=== PATIENT | female | born 1940 | race Caucasian/White ===

== ENCOUNTER 2020-05-15 10:13 | Inpatient (IN) | payer OTHER, MEDICAID ==
[2020-05-09 10:40] LABS: ABSOLUTE BASOPHILS 0.1 thou/uL (0.0-0.2); ABSOLUTE EOSINOPHILS 0.2 thou/uL (0.0-0.7); ABSOLUTE LYMPHOCYTES 2.5 thou/uL (0.8-5.3); ABSOLUTE MONOCYTES 0.7 thou/uL (0.0-1.2); ABSOLUTE NEUTROPHILS 3.7 thou/uL (1.6-8.1); EOSINOPHILS 2.3 %; HEMATOCRIT 38.4 % (37.0-47.0); HEMOGLOBIN 12.9 gm/dL (12.0-15.0); LYMPHOCYTES 34.5 %; MCHC 33.5 g/dL (28.0-37.0); MCV 89.7 fL (80.0-100.0); MONOCYTES 9.9 %; MPV 7.9 fl. (7.2-11.1); NUCLEATED RBCS 0 /100WBC; PLATELET COUNT* 239 thou/uL (150-400); POLYS 52.3 %; RBC 4.28 mil/uL (4.20-5.00); RDW-CV 13.7 % (10.5-14.5); WBC 7.1 thou/uL (4.0-11.0)
[2020-05-09 10:51] LABS: APTT 26.6 Seconds (25.0-31.3); PROTIME 10.1 Seconds (9.20-11.50)
[2020-05-09 11:00] LABS: ALBUMIN 3.7 g/dL (3.4-5.0); CALCIUM 8.4 mg/dL (8.5-10.1); CREATININE 0.8 mg/dL (0.6-1.3); POTASSIUM 3.7 mmol/L (3.5-5.1); TOTAL BILIRUBIN 0.6 mg/dL (<0.1-1.0); TOTAL PROTEIN 7.3 g/dL (6.4-8.2)
[2020-05-09 11:10] LABS: URINE BILIRUBIN NEGATIVE (Negative); URINE BLOOD NEGATIVE (Negative); URINE CLARITY CLEAR; URINE COLOR YELLOW; URINE GLUCOSE-RANDOM NEGATIVE (Negative); URINE KETONES NEGATIVE (Negative); URINE LEUKOCYTES-REFLEX TRACE (Negative); URINE NITRITE-REFLEX NEGATIVE (Negative); URINE PROTEIN NEGATIVE (Negative); URINE UROBILINOGEN 0.2 E.U./dl (0.2-1.0)
[2020-05-09 11:15] LABS: BACTERIA-REFLEX 1-9 Few /HPF (None Seen); CASTS None Seen /LPF (None Seen); CRYSTALS None Seen /LPF (None Seen); SQUAMOUS 0-3 Few /LPF (0-3); URINE RBC 0-2 Rare /HPF (0-2); URINE WBC-REFLEX 0-5 Rare /HPF (0-5)
[2020-05-09 12:13] LABS: ESR (SEDRATE) 18 mm/hr (0-30)
--- NOTE | 2020-05-09 19:18 | EKG ---
[place] [address] ELECTROCARDIOGRAM REPORT Name: AIDAN NORMAN Room: [facility]#: [id number] Admission: Attend Phys: Sabas Noriega DO Discharge: Date of : 42 Date of Service: 05/09/20 1045 Report #: [id number] THIS REPORT FOR: //name// [facility] Test Date: 2020-05-09 Test Time: 10:45:23 Pat Name: AIDAN NORMAN Department: Room: Gender: Nurses Educator: : 1940 Requested By: Sabas Noriega Order Number: [id number] MD: Luis Hogue Measurements Intervals [place] Rate: 62 P: 57 FL: 199 QRS: -41 QRSD: 90 T: 64 QT: 453 QTc: 460 Interpretive Statements Sinus rhythm Left anterior fascicular block No previous ECG available for comparison Electronically Signed On 05-09-2020 17:43:49 CDT by Luis Hogue [email or web address] <ELECTRONICALLY SIGNED> By: Luis Hogue MD, [facility] 05/09/20 1743 1045 1045 Luis Hogue MD, FACC /EPI
[~2020-05-15] VITALS: Ht 165.1 cm; Wt 75.3 kg
--- NOTE | ~2020-05-15 | OP ---
[facility] [address] [place] [address] OPERATIVE REPORT Name: AIDAN NORMAN Loly Room: [address] [place].R.#: [id number] Admission: 05/15/20 Attend Phys: Wade Cornejo Discharge: Date of : 42 Report #: [id number] THIS REPORT FOR: //name// cc: Tegan Gonzáles MD, Ghazal A. MD ~ THIS REPORT FOR: //name// CC: Tegan Perez DICTATED BY: Festus Christiansen DO DATE OF SERVICE: 05/15/2020 PREOPERATIVE DIAGNOSIS: Failed right total knee. POSTOPERATIVE DIAGNOSIS: Failed right total knee. PROCEDURE PERFORMED: Revision right total knee arthroplasty using the [employer] Persona revision system with the following components: 1. A size 7 right revision femoral component. 2. A size 14 x 135 mm straight femoral stem. 3. A size 5 mm posterolateral femoral augment. 4. A size 5 mm right lateral distal femoral augment. 5. A size 10 mm medial distal femoral augment. 6. A size small femoral cone. 7. A size D tibial baseplate. 8. A size 13 x 135 mm tibial stem with a 3 mm offset. 9. A 5 mm medial and lateral tibial augments. 10. A size extra small tibial cone. 11. A 16 mm constrained posterior stabilized polyethylene. 12. Two bags of Biomet bone cement. SURGEON: Sabas Noriega DO FLOORING SALESPERSON: Festus Christiansen DO and Marilia Gutierrez PA-C. ANESTHESIA: Spinal with continuous adductor canal block. ESTIMATED BLOOD LOSS: 225. SPECIMENS: None. COMPLICATIONS: None. [place] [id number] OPERATIVE REPORT Name: AIDAN NORMAN Room: [address] [place].#: [id number] Admission: 05/15/20 Attend Phys: Wade Cornejo Discharge: Date of : 42 Report #: [id number] DISPOSITION: Stable to PACU. ANTIBIOTICS: IV Ancef given preoperatively. TOURNIQUET TIME: 27 minutes at 290 mmHg. INDICATIONS: The patient is a 79-year-old female with a history of a right total knee. She did well initially. However, the last couple of years, she began having increased pain and instability. She failed all conservative measures. She continued to have pain on a daily basis that was interfering with her ADLs. Therefore, I recommend she undergo revision total knee arthroplasty. DESCRIPTION OF PROCEDURE: The patient was seen in the preoperative area. Written consent was obtained. The operative site marked. She was brought back to the operative suite and placed supine on a well-padded operative table. She could benefit of spinal anesthesia. A well-padded pneumatic tourniquet was applied to right proximal thigh. Right lower extremity was prepped and draped in normal sterile fashion. Surgical timeout was performed. Correct side, site, procedure were verified. Everyone present was in agreement. Procedure began with a scar excision. Sharp dissection was taken down on either side of the incision and the subcutaneous fat was excised with the skin. We then sharply dissected down to the level of capsule. A new blade was used to create a standard medial parapatellar arthrotomy. 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 There was a small joint effusion. No obvious signs of infection. We created our medial capsular sleeve. We released the adhesions on the retropatellar tendon space. We were able to uday the patella. We then performed an extensive synovectomy using the Bovie cautery. Adequate hemostasis was achieved throughout. We were then able to flex the knee up to 120 degrees of flexion. The poly was removed. We used flexible osteotomes to loosen up the femoral component. The femoral component was then extracted with minimal bone loss. We turned our attention to the tibia. The flexible osteotome was used again to break up the cement mantle. We then used a flat osteotome to lift the keel out of the tibial metaphysis. Again, there was minimal bone loss. We then began reaming sequentially. The tibia reamed to 13 and the femur reamed to a 14. We focused our attention on the femur. We thinned the distal femoral cutting guide into place in 6 degrees of valgus. The cut was made for a cleanup fashion. There was a minimal cut through the distal jig. We therefore cut for a 5 mm augment laterally and a 10 mm augment medially and this provided appropriate cleanup cut. We then sized the femur to 7. The 4-in-1 cutting block was pinned into place, referencing the epicondylar access. The carmen wing was used to confirm the appropriate size. Anterior cut was made in standard fashion. Posterior medial, we performed a cleanup cut. On the lateral side, we were missing a little bit of bone, so we cut through the 5 mm slot. The chamfer cuts were made in standard fashion. We then turned our attention to the tibia. The reamer was reinserted. The cutting guide was [place] [id number] OPERATIVE REPORT Name: AIDAN NORMAN Room: [address] [place] [facility]#: [id number] Admission: 05/15/20 Attend Phys: Wade Cornejo Discharge: Date of : 42 Report #: [id number] measured off the highest point. We used the 0 mm cut, which air balled throughout most of the tibial plateau. We then cut through the 5 mm block on each side, which gave us a good cleanup cut. We sized the tibia to a D. During the sizing, we determined a 3 mm offset was appropriate. This was between the 6 and 7 o'clock positions. We then trialled our tibial component. We referenced the medial third of tibial tubercle. We checked our alignment with the drop tabatha, which was along the center of crest, center of the ankle and second ray. At this point, we prepped for our cone. We used the reamer followed by sequential broaches for an extra small. We then prepped the femur for the cone again in similar fashion with a drill followed by the appropriate sized punch. All final components were inserted. A 14 mm poly was trialed. This allowed for full flexion and extension. Slight laxity which was symmetric at both 30 degrees and 90 degrees of flexion. We tried 16, which allowed for good motion, symmetric gaps and good balancing. We assessed the patella. It appeared stable. No significant defects. All trial components were removed. The tibia was punched with the keel. The knee was thoroughly lavaged. Orthopedic cocktail was injected in the posterior capsule. We elevated the leg and inflated the tourniquet to 290 mmHg. This deflated after cementing for a total time of 27 minutes. Final components were assembled on the back table. The cement was mixed. We inserted the cones first both on the tibia and the femur. We then used the diamond sizer and grader to cement the final components. Excess cement was removed. A 16 mm trial was utilized. This allowed for full flexion and extension with good balancing and symmetric gaps. The final 60 mm poly was inserted. The wound was thoroughly irrigated. Vancomycin powder was introduced. The knee was brought to 90 degrees of flexion. Tourniquet was deflated for a total time of 27 minutes. The capsular tissue was closed with #1 Vicryl in asmidv-om-lorsy fashion. This was reinforced with a running #1 Stratafix. The wound was thoroughly irrigated. Subcutaneous tissue was closed with 2-0 Monocryl in a simple inverted interrupted fashion. This was reinforced with a running 3-0 Stratafix and Exofin skin glue. Sterile Mepilex was applied. The patient was awoken from anesthesia and transferred to PACU in stable condition. There were no complications. Needle and sponge counts were correct x 2. Dr. Noriega was present for all critical aspects of the case. By: [id number] Noriega DO /nt
[~2020-05-15 10:13] MED LIST: ALPRAZOLAM 0.0.25 MG PO; CETIRIZINE HCL5 MG PO; COZAAR 25 MG TA25 M2 PO; LEVOXYL88 MCG PO; LIPITOR10 MG PO; OMEPRAZOLE 20 M20 M1 PO; SINGULAIR 10 MG10 M1 PO; TRAZODONE HCL100 MG PO
[2020-05-15] MEDS ORDERED: TYLENOL EXTRA500 MG PO (10:29)
[2020-05-15 11:45] VITALS: BP 109/55
[2020-05-16] VITALS (7 sets, daily range): BP systolic 78–128; BP diastolic 25–63
[2020-05-16 04:22] LABS: HEMATOCRIT 27.6 % (37.0-47.0); HEMOGLOBIN 9.4 gm/dL (12.0-15.0)
[2020-05-17 04:00] VITALS: BP 110/53
[2020-05-17 04:39] LABS: ABSOLUTE LYMPHOCYTES 1.8 thou/uL (0.8-5.3); ABSOLUTE MONOCYTES 1.1 thou/uL (0.0-1.2); ABSOLUTE NEUTROPHILS 4.7 thou/uL (1.6-8.1); BASOPHILS 0.3 %; EOSINOPHILS 0.5 %; HEMATOCRIT 23.8 % (37.0-47.0); MCH 30.3 pg (26.0-34.0); MCHC 33.8 g/dL (28.0-37.0); MCV 89.6 fL (80.0-100.0); MONOCYTES 14.1 %; MPV 8.3 fl. (7.2-11.1); NUCLEATED RBCS 0 /100WBC; PLATELET COUNT* 139 thou/uL (150-400); POLYS 61.1 %; RBC 2.65 mil/uL (4.20-5.00); RDW-CV 13.2 % (10.5-14.5); WBC 7.7 thou/uL (4.0-11.0)
[2020-05-17 05:11] LABS: % SATURATION 5 % (20-39); IRON 11 ug/dL (50-175)
[2020-05-17 08:00] VITALS: BP 101/34
[2020-05-17 12:00] VITALS: BP 123/49
[2020-05-17 16:00] VITALS: BP 135/55
[2020-05-18] VITALS: BP 152/47
[2020-05-18 07:50] VITALS: BP 135/37
[2020-05-18] MEDS ORDERED: ELIQUIS5 MG PO (10:58)
[2020-05-18] MEDS ORDERED: HYDROCODON-ACE1 EAC7 PO (10:58)
[2020-05-18] MEDS ORDERED: FERROUSUL325 M1 PO (10:58)
[2020-05-18] MEDS ORDERED: SENOKOT-S TABL1 EACH PO (10:58)
[2020-05-18] MEDS ORDERED: TRAMADOL HCL50 MG PO (12:21)
== END 2020-05-18 14:27 | disposition home health service (06) | DRG 468 ==
LOC: M.PRE → M.ORTHSURG 10:13 → M.TBA 10:13 → M.PRE 11:08 → M.TBA 15:10 → M.ORTHSURG 15:10
PROVIDERS: Family Medicine; Orthopaedic Surgery; ADMIT Internal Medicine; ATTEND Internal Medicine
PROC: 0SRT0J9 Replacement of Right Knee Joint, Femoral Surface with Synthetic Substitute, Cemented, Open Approach (ICD-10-PCS; principal; 2020-05-15)
PROC: 0SPT0JZ Removal of Synthetic Substitute from Right Knee Joint, Femoral Surface, Open Approach (ICD-10-PCS; principal; 2020-05-15)
DX: T84.092A Other mechanical complication of internal right knee prosthesis, initial encounter (principal); J45.909 Unspecified asthma, uncomplicated; E03.9 Hypothyroidism, unspecified; K21.9 Gastro-esophageal reflux disease without esophagitis; E78.00 Pure hypercholesterolemia, unspecified; F41.9 Anxiety disorder, unspecified; F32.9 Major depressive disorder, single episode, unspecified; G47.00 Insomnia, unspecified; I95.2 Hypotension due to drugs; D50.9 Iron deficiency anemia, unspecified; Z88.6 Allergy status to analgesic agent; Z88.0 Allergy status to penicillin; Z88.8 Allergy status to other drugs, medicaments and biological substances; Z98.42 Cataract extraction status, left eye; Z98.41 Cataract extraction status, right eye; Z82.49 Family history of ischemic heart disease and other diseases of the circulatory system; Y83.8 Other surgical procedures as the cause of abnormal reaction of the patient, or of later complication, without mention of misadventure at the time of the procedure; Y92.89 Other specified places as the place of occurrence of the external cause; Z03.818 Encounter for observation for suspected exposure to other biological agents ruled out